=== PATIENT | male | born 1945 | race Caucasian/White ===

== ENCOUNTER 2016-08-01 16:08 | Emergency (ER) | payer OTHER ==
[2016-08-01 16:26] VITALS: BP 153/65; PULSE 67; RESP 16; TEMP 98.2; O2SAT 95
[2016-08-01] MEDS ORDERED: OXYMETAZOLINE 30 ML NASAL SPRAY ONE (16:45)
[2016-08-01] MEDS ORDERED: OXYMETAZOLINE 30 ML NASAL SPRAY EACHNARE ONE (16:49)
--- NOTE | 2016-08-01 16:53 | UCPHY ---
H & P Time Seen by Provider: 08/01/16 16:18 Patient Type: New HPI/ROS: CHIEF COMPLAINT: Right eyes and discharge HISTORY OF PRESENT ILLNESS: 70-year-old male states that 10 days ago he was working with wood and felt like he had gotten wood sap and wood dust into both of his eyes. They remained slightly irritated over the next 2-3 days but then improved. He was then [place] and reports it was quite windy. He had wind blowing dust into his eyes. Afterwards, he again complained of bilateral eye irritation. Yesterday he woke with bilateral discharge, swelling of his eyelids, and mucus in his eyes. He reports the eyes are itchy and irritated. No foreign body sensation. No pain. No photophobia. Does not wear contacts. No pain with extraocular movements. No fever. No upper respiratory infection symptoms. He [place] today. He did develop a nosebleed on arrival to [place] which she states happens frequently due to the dry air. Of note, patient reports he took aspirin last night in order to help him sleep from the discomfort of his eyes. No fever, chills, chest pain, shortness of breath, palpitations, vomiting, diarrhea, urinary complaints, headache, lightheadedness. REVIEW OF SYSTEMS: Aside from elements discussed in the HPI, a comprehensive 10-point review of systems was reviewed and is negative. PAST MEDICAL HISTORY: Past history of melanoma, no current treatment. SOCIAL HISTORY: Patient is visiting. Here with his niece. VITAL SIGNS: see nurse's notes. GENERAL: Well-developed, well-nourished, in no acute distress. Pleasant, conversant. HEENT: Normocephalic, atraumatic. Eyes are tearing bilaterally, obviously red, with significant mucus discharge. Visual Acuity: noted from Nurse's notes. Focused examination of bilateral eyes. Eyelid: Mild erythema. Pupils: 3 mm Round and reactive to light EOMI No pain with EOMI. Conjunctivae: Diffuse injection, edema of the conjunctiva, discharge. Skin: Mild periorbital erythema and swelling. No vesicles. TMs are clear bilaterally. Nose: Packing is in place in the left nares. When removed, there is no further epistaxis. Neck is supple. Oropharynx clear. Smoking Status: Never smoked Constitutional: Initial Vital Signs Temperature (C) 36.8 C 08/01/16 16:22 Heart Rate 67 08/01/16 16:22 Respiratory Rate 16 08/01/16 16:22 Blood Pressure 153/65 H 08/01/16 16:22 O2 Sat (%) 95 08/01/16 16:22 O2 Delivery Mode Room Air Allergies/Adverse Reactions: No Known Allergies Allergy (Unverified 08/01/16 16:21) Home Medications: Medication Instructions Recorded Ofloxacin 0.3% [Ocuflox 0.3%] 2 drops OP QID #1 opht.btl 08/01/16 Medical Decision Making ED Course/Re-evaluation: Will start ofloxacin eyedrops. Given Afrin nasal spray to use for any recurrent epistaxis. Advised not to use aspirin. Given referral to Dr. Medina. Differential Diagnosis: Differential diagnosis for the patient's presenting complaints includes corneal abrasion, conjunctivitis, iritis, hordeolum, chalazion, cellulitis, periorbital cellulitis, glaucoma, and contusion. - Data Points Medications Given: Discontinued Medications Oxymetazoline HCl (Afrin Nasal [place]) 2 sprays EACHNARE EDNOW ONE Stop: 08/01/16 16:50 Last Admin: 08/01/16 16:50 Dose: 2 sprays Departure - Departure Disposition: Home, Routine, Self-Care Clinical Impression: Epistaxis Conjunctivitis Qualifiers: Conjunctivitis type: acute Acute conjunctivitis type: unspecified Laterality: bilateral Qualified Code(s): H10.33 - Unspecified acute conjunctivitis, bilateral Condition: Good Instructions: Nosebleed (ED), Conjunctivitis (ED) Additional Instructions: Please use the antibiotic eyedrops as directed. 1-2 drops in each eye every 2-3 hours for the next 24 hours, then 1-2 drops 4 to 6 times a day for an additional 4 days. Follow up with the airport screener as directed if you're not improving significantly within the next 24-36 hours. Please avoid taking aspirin in the future. For your nose bleed, please use the Afrin nasal spray 2 times a day for the next 3 days to keep the mucous membranes constricted. You may also consider placing a small amount of Vaseline gauze under the nose to help moist in the air. Return to Urgent Care for worse. Referrals: Jan Medina MD [Medical Doctor] - As per Instructions Prescriptions: Ofloxacin 0.3% [Ocuflox 0.3%] 2 drops OP QID #1 opht.btl - PQRS PQRS Measurement: 134: Depression screening and followup, PRIME MD-PHQ2 (12 years and older) Over the last 2 weeks, how often have you been bothered by any of the following problems? 1. Feeling down, depressed, or hopeless? 2. Little interest or pleasure in doing things? Patient answered no to both 1 and 2 130: Documentation of medications. Reviewed all patient medications, doses, route and frequency. 226: Do you smoke? No. 47: 65 and older: Advanced care planning. Patient has advanced directive. 51: 18 years old and older with diagnosis of COPD, spirometry performance. Patient has no history of COPD 52: 18 years old and older with COPD and symptoms of COPD or FEV1<60% predicted prescribed a B Agonist. Patient has no history of COPD
== END 2016-08-01 17:13 | disposition home or self-care (01) ==
LOC: CED 16:08
DX: H10.33 Unspecified acute conjunctivitis, bilateral (principal); R04.0 Epistaxis
CPT/HCPCS: 99203-PO; G0463-PO